=== PATIENT | female | born 1980 | race Asian ===

== ENCOUNTER → 2023-08-06 07:45 | Outpatient (BNV) | payer OTHER, SELFPAY | PROVIDERS: PCP Internal Medicine; Visit Provider Radiology Diagnostic Radiology | DX: Z12.31 Encounter for screening mammogram for malignant neoplasm of breast (principal) | CPT/HCPCS: 77063; 77067 ==

== ENCOUNTER 2023-08-06 07:54 | Outpatient (REF) | payer OTHER, SELFPAY ==
--- NOTE | ~2023-08-06 | MM_ITS ---
EXAMINATION: MM SCREENING DIGITAL BREAST TOMOSYNTHESIS, BILATERAL CLINICAL INFORMATION: Screening. Asymptomatic. COMPARISON: Mammography: There are no prior mammograms for comparison. This is a baseline study. TECHNIQUE: Digital breast tomosynthesis is performed in both the craniocaudal and mediolateral oblique views along with computer-aided detection (CAD). Synthesized 2D images are generated from the tomosynthesis. FINDINGS: There are scattered areas of fibroglandular density (ACR BI-RADS breast composition Category b). In the 2 to 3:00 position of the deep third of the left breast, there is a well-circumscribed, oval, 25 mm focal asymmetry. This may represent a fibroadenoma however, further mammographic and targeted sonographic evaluation of this finding is advised for definitive evaluation. In the right breast, there are no significant masses, abnormal calcifications, or other abnormalities. MM/MM tomosynthesis screening BI IMPRESSION: Focal asymmetry of the left breast warrants additional mammographic and targeted sonographic evaluation. No mammographic signs of malignancy right breast. ASSESSMENT: BI-RADS BI-RADS 0 - Incomplete: Needs additional Imaging. RECOMMENDATION: 1. Additional views of the left 2. Targeted ultrasound if warranted after review of the additional views. 3. Radiology department staff will contact the patient for additional imaging. Additional Imaging required This examination should not preclude the clinical evaluation of a suspicious palpable abnormality. This patient's information was entered into a reminder system with a target due date for their next mammogram.
== END 2023-08-06 07:55 | disposition home or self-care (01) ==
LOC: HO.MAMMO 07:54
PROVIDERS: PCP Internal Medicine; Visit Provider Internal Medicine
DX: Z12.31 Encounter for screening mammogram for malignant neoplasm of breast (principal)
CPT/HCPCS: 77063; 77067

== ENCOUNTER → 2023-08-22 14:00 | Outpatient (BNV) | payer OTHER, SELFPAY | PROVIDERS: PCP Internal Medicine; Visit Provider Radiology Diagnostic Radiology | DX: R92.8 Other abnormal and inconclusive findings on diagnostic imaging of breast (principal) | CPT/HCPCS: 76642; 77061; 77065 ==

== ENCOUNTER 2023-08-22 14:02 | Outpatient (REF) | payer OTHER, SELFPAY ==
--- NOTE | ~2023-08-22 | US_ITS ---
EXAMINATION: MM DIAGNOSTIC DIGITAL BREAST TOMOSYNTHESIS, LEFT US BREAST LIMITED, LEFT MAMMOGRAPHY: CLINICAL INFORMATION: Oval bilobed mass in the approximate 4:00 axis of the left breast, posterior one third, seen on screening exam. COMPARISON: Mammography: 08/01/2023. Priors from [facility] are not available. TECHNIQUE: Digital left breast tomosynthesis is performed in the following views: 3-D spot compression left CC, left MLO, and left ML views were obtained. Ultrasound was also scheduled. FINDINGS: There are scattered areas of fibroglandular density (ACR BI-RADS breast composition Category b). There is a bilobed mass within the 4:00 axis of the left breast, posterior one third, measuring 2.4 cm x 1.6 cm on mammography, and is isodense and otherwise circumscribed. This will be evaluated by ultrasound. ULTRASOUND: CLINICAL INFORMATION: 4:00 mass lesion. COMPARISON: None available. TECHNIQUE: Targeted sonographic evaluation was performed using a high frequency linear transducer. Attention was given to the 4:00 axis of the left breast. Selected archived documentation. FINDINGS: LEFT BREAST: In the 4:00 axis of the left breast, 7 cm from the nipple, there is a bilobed hypoechoic circumscribed mass with scant internal blood flow on color Doppler imaging, measuring 3.2 cm x 2.1 cm x 1.1 cm. This demonstrates a probable pseudocapsule, and through transmission, highly suggestive of a fibroadenoma. In discussion with the patient and the patient's , the patient has already undergone biopsy of this mass with benign result in [facility] approximately 7-8 years prior. As opposed to rebiopsy, he and his prefer six-month follow-up for 2 years to ensure stability. I feel this is a reasonable request with any interval change prompting re-biopsy. US/US breast LT limited mamm only IMPRESSION: Probably benign mass 4:00 axis 7 cm from the nipple in the left breast, for which six-month follow-up ultrasound is recommended. See discussion above. OVERALL ASSESSMENT: Mammography: BI-RADS 3 - Probably benign finding(s) - 6 month follow-up suggested Ultrasound: BI-RADS 3 - Probably benign finding(s) - 6 month follow-up suggested RECOMMENDATION: 6 Month F/U This patient's information was entered into a reminder system with a target due date for their next mammogram.
== END 2023-08-22 14:03 | disposition home or self-care (01) ==
LOC: HO.MAMMO 14:02
PROVIDERS: PCP Internal Medicine; Visit Provider Internal Medicine
DX: N64.89 Other specified disorders of breast (principal)
CPT/HCPCS: 76642; 77061; 77065

== ENCOUNTER → 2024-09-03 09:00 | Outpatient (BNV) | payer OTHER, SELFPAY | PROVIDERS: PCP Internal Medicine; Visit Provider Internal Medicine | DX: Z12.31 Encounter for screening mammogram for malignant neoplasm of breast (principal) | CPT/HCPCS: 77063; 77067 ==

== ENCOUNTER 2024-09-03 09:09 | Outpatient (REF) | payer OTHER, SELFPAY | END 2024-09-03 09:10 | disposition home or self-care (01) | LOC: HO.MAMMO 09:09 | PROVIDERS: PCP Internal Medicine; Visit Provider Internal Medicine | DX: Z12.31 Encounter for screening mammogram for malignant neoplasm of breast (principal) | CPT/HCPCS: 77063; 77067 ==

== ENCOUNTER 2024-10-12 08:27 | Outpatient (REF) | payer OTHER, SELFPAY ==
--- NOTE | ~2024-10-12 | US_ITS ---
EXAMINATION: US DIAGNOSTIC ULTRASOUND BREAST, LEFT CLINICAL INFORMATION: Call back from screening for oval mass measuring up to 32 mm on ultrasound for follow-up and evaluation.. COMPARISON: Comparison is made with relevant prior imaging. TECHNIQUE: Ultrasound of the breast is performed with real-time jesus scale imaging and color Doppler. FINDINGS: Targeted color Doppler ultrasound in the left breast at 4:00 7 cm from nipple demonstrates a hypoechoic oval circumscribed solid mass measuring 30 x 14 x 16 mm. This is overall not significant change from prior ultrasound dated August 2023 where this mass at 4:00 7 cm from nipple measures 32 x 21 x 11 mm. There is a questionable cystic component at one end of this mass. Results are discussed with the patient at time of visit. US/US breast LT limited mamm only IMPRESSION: Hypoechoic oval solid mass measuring up to 30 mm with a questionable cystic component. Given the size and a questionable cystic component biopsy was offered to the patient. Discussion of the results and recommendations occurred between the patient and the patient's spouse, they will schedule a biopsy at this time and inquire their insurance company for coverage details. If no biopsy is performed then follow-up ultrasound should be considered in 12 months. ASSESSMENT: BI-RADS 4: Suspicious RECOMMENDATION: Biopsy. This patient's information was entered into a reminder system with a target due date for their next mammogram. Electronically signed by: Carol Wright DO 10/12/2024 09:31 AM [facility]
== END 2024-10-12 08:28 | disposition home or self-care (01) ==
LOC: HO.MAMMO 08:27
PROVIDERS: PCP Internal Medicine; Visit Provider Internal Medicine
DX: N63.23 Unspecified lump in the left breast, lower outer quadrant (principal)
CPT/HCPCS: 76642

== ENCOUNTER → 2024-10-12 08:45 | Outpatient (BNV) | payer OTHER, SELFPAY | PROVIDERS: PCP Internal Medicine; Visit Provider Internal Medicine | DX: N63.20 Unspecified lump in the left breast, unspecified quadrant (principal) | CPT/HCPCS: 76642 ==